=== PATIENT | female | born 1955 | race Caucasian/White ===

== ENCOUNTER 2024-03-11 19:28 | Emergency (ER) | payer OTHER, SELFPAY ==
[2024-03-11 19:38] VITALS: BP 134/85; PULSE 99; RESP 18; TEMP 37; O2SAT 98
--- NOTE | 2024-03-11 20:19 | ED.URI ---
HPI - URI/Sore Throat General Chief Complaint: Upper Respiratory Infection Stated Complaint: Sinus Time Seen by Provider: 03/11/24 19:55 Source: patient, RN notes reviewed and old records reviewed Mode of arrival: ambulatory Limitations: no limitations History of Present Illness HPI Narrative: 69 year old female who presents to [facility] with complaint of headache, cough, yellow phlegm, sinus congestion with pressure to her forehead since . Patient reports this is sinus related usually gets this all the time this time of year. Patient reports that she is hoarse, denies any fevers or body aches. Declines any strep or any COVID testing. Patient states she is from [facility] and will be traveling back soon. MD elicited complaint: cough, rhinorrhea, nasal congestion, sinus pain and other (hoarseness) Onset (ago): day(s) (day 3 of symptoms) Consistency: progressively worsening Severity: mild Description of mucous: yellow and green Able to tolerate fluids by mouth: Yes Treatments prior to arrival: none Related Data Home Medications Medication Instructions Recorded Confirmed bupropion HCl 150 mg 24 hr tablet, 150 mg PO DAILY 03/11/24 03/11/24 extended release ergocalciferol (vitamin D2) 1,250 1,250 mcg PO WEEKLY 03/11/24 03/11/24 mcg (50,000 unit) capsule phentermine 37.5 mg tablet 37.5 mg PO DAILY 03/11/24 03/11/24 Allergies Allergy/AdvReac Type Severity Reaction Status Date / Time No Known Allergies Allergy Verified 03/11/24 20:00 Review of Systems Review of Systems: CONSTITUTIONAL: Denies malaise, chills, sweats, or fever. EYES: Denies visual changes, redness, or discharge. ENT: Reports rhinorrhea, congestion, sinus pain,no otalgia and no sore throat. CARDIOVASCULAR: Denies chest pain, palpitations, or edema. RESPIRATORY: Reports cough.? Denies dyspnea. GASTROINTESTINAL: Denies abdominal pain, nausea, vomiting, diarrhea SKIN: Denies rash or itching. MUSCULOSKELETAL: Denies myalgia. NEUROLOGIC:reports frontal headache. All systems reviewed & are unremarkable except as noted in HPI and below PMFSH Past Medical History Medical History (Updated 03/12/24 @ 17:17 by Mercedes Goetz NP) Anxiety Arthritis History of sinus problem Surgical History Surgical History (Updated 03/12/24 @ 17:12 by Mercedes Goetz NP) H/O bilateral hip replacements History of tonsillectomy Hx of right knee surgery Social History Social History (Updated 03/12/24 @ 17:13 by Mercedes Goetz NP) Smoking status: Never smoker Alcohol intake: unknown Substance use type: does not use Gender identity (if verbalized by the patient): Female Comments At time of signature, agree with nursing past medical, surgical, social and family history. There is no relevant family history pertinent to the presenting complaint Exam Narrative: GENERAL: Well-appearing, well-nourished, and in no acute distress. HEAD: Normocephalic EYES: PERRLA, conjunctivae clear ENT: Nares clear, turbinates edematous and erythematous, clear to yellow discharge, sinus pressure and headache. Mucous membranes moist. TM pearly kirkpatrick with dull light reflex bilaterally; no tragal tenderness. Oropharynx erythematous without lesions. Tonsils not present and throat without exudate no drooling, positive for hoarseness, no trismus, uvula midline.post nasal drainage NECK: Supple. No lymphadenopathy CHEST: Clear to auscultation, breath sounds equal. No wheezing, rhonchi, rales, or stridor. No respiratory distress, speaks in full sentences. productive cough SAO2 98% on room air HEART: Regular rate and rhythm. No murmur heard. SKIN: Warm, dry, no rash. NEURO: Alert and oriented x3. PSYCH: Normal mood and affect Course Course Emergency Course: Patient is aware of diagnosis, understands and agrees to treatment plan.? Anticipatory guidance given.? Patient agrees to follow-up as directed and is claudine
== END 2024-03-11 20:31 | disposition home or self-care (01) ==
PROVIDERS: Emergency Provider Registered Nurse
DX: J06.9 Acute upper respiratory infection, unspecified (principal); R05.9 Cough, unspecified; J45.909 Unspecified asthma, uncomplicated; F41.9 Anxiety disorder, unspecified; Z96.643 Presence of artificial hip joint, bilateral
CPT/HCPCS: 99213; G0463